=== PATIENT | female | born 1950 | race Caucasian/White ===

== ENCOUNTER 2020-09-08 07:40 | Day surgery (SDC) | payer OTHER, MEDICARE ==
[2020-09-04 14:13] VITALS: BMI 25.2
[2020-09-08] MEDS ORDERED: LIDOCAINE HCL/PF 2% SDV 5ML VIAL ONE (07:56)
[2020-09-08] MEDS ORDERED: PROPOFOL 20 ML ONE ×3 (07:56)
[2020-09-08 16:20] VITALS: PULSE 52
[2020-09-08 16:25] VITALS: BP 101/82; TEMP 97.5
== END 2020-09-08 09:05 | disposition home or self-care (01) ==
LOC: FASU-ENDO 07:40
PROVIDERS: ATTEND Internal Medicine Gastroenterology
PROC: 0DJD8ZZ Inspection of Lower Intestinal Tract, Via Natural or Artificial Opening Endoscopic (ICD-10-PCS; principal; 2020-09-08 08:21)
DX: Z12.11 Encounter for screening for malignant neoplasm of colon (principal); Z83.71 Family history of colonic polyps; K57.30 Diverticulosis of large intestine without perforation or abscess without bleeding